=== PATIENT | female | born 1940 | race Caucasian/White ===

== ENCOUNTER 2021-04-05 07:14 | Emergency (ER) | payer MEDICARE, BC ==
[2021-04-05] MEDS ORDERED: Acetaminophen 325 MG Tab PO ONE (08:01)
--- NOTE | 2021-04-05 08:05 | EDM.PDOC ---
ED HPI GENERAL MEDICAL PROBLEM - General Chief Complaint: Lower Extremity Injury/Pain Stated Complaint: FALL RT KNEE PAIN Time Seen by Provider: 04/05/21 07:50 Source of Information: Reports: Patient History Limitations: Reports: No Limitations - History of Present Illness INITIAL COMMENTS - FREE TEXT/NARRATIVE: 80 yo female presents with R knee pain after falling on it last night about 6 pm. Took Tylenol then, nothing since. No other injuries. Has had to use a walker to get around since the injury. Onset: Sudden Onset Date: 04/04/21 Onset Time: 18:00 Duration: Hour(s):, Constant Location: Reports: Lower Extremity, Right Quality: Reports: Ache Severity: Moderate Improves with: Reports: Rest Worsens with: Reports: Movement Context: Reports: Trauma Associated Symptoms: Reports: No Other Symptoms Treatments LIGHTING SPECIALIST: Reports: Other (see below) (none) - Related Data Allergies Allergy/AdvReac Type Severity Reaction Status Date / Time Penicillins Allergy Hives Verified 04/05/21 07:45 tape Allergy Edema Uncoded 04/05/21 07:45 Home Meds: Home Meds Aspirin 1 tab PO DAILY 04/05/21 [History] Pravastatin Sodium 1 tab PO DAILY 04/05/21 [History] gemfibroziL [Gemfibrozil] 1 tab PO DAILY 04/05/21 [History] lisinopriL [Lisinopril] 1 tab PO DAILY 04/05/21 [History] metFORMIN [Glucophage] 1 tab PO DAILY 04/05/21 [History] Past Medical History Cardiovascular History: Reports: High Cholesterol Musculoskeletal History: Reports: Other (See Below) Other Musculoskeletal History: polio left leg brace Endocrine/Metabolic History: Reports: Diabetes, Type II - Past Surgical History Female Surgical History: Reports: Hysterectomy Social & Family History - Tobacco Use Tobacco Use Status *Q: Never Tobacco User Review of Systems - Review of Systems Review Of Systems: See Below Constitutional: Reports: No Symptoms Musculoskeletal: Reports: Joint Pain (R knee) Skin: Reports: No Symptoms Neurological: Reports: No Symptoms ED EXAM, GENERAL - Physical Exam Exam: See Below Exam Limited By: No Limitations General Appearance: Alert, WD/WN, No Apparent Distress Extremities: Pedal Edema (slight swelling to the R medial knee with tenderness. ). No: Normal Inspection, Normal Range of Motion, Non-Tender, No Pedal Edema Neurological: Alert, Oriented, CN II-XII Intact, Normal Cognition, No Motor/Sensory Deficits Psychiatric: Normal Affect, Normal Mood Skin Exam: Warm, Dry, Intact, Normal Color, No Rash. No: Ecchymosis Course - Vital Signs Last Recorded V/S: Last Vital Signs Temp 36.7 C 04/05/21 07:57 Pulse 63 04/05/21 07:57 Resp 16 04/05/21 07:57 BP 137/77 04/05/21 07:57 Pulse Ox 100 04/05/21 07:57 - Orders/Labs/Meds Orders: Active Orders 24 hr Category Date Time Status Knee Min 4V Rt [CR] Stat Exams 04/05/21 07:59 Ordered oxyCODONE Med 04/05/21 08:23 Once 5 mg PO ONETIME ONE Meds: Medications Discontinued Medications Generic Name Dose Route Start Last Admin Trade Name Freq PRN Reason Stop Dose Admin Acetaminophen 650 mg 04/05/21 08:01 04/05/21 08:09 Acetaminophen 325 Mg Tab PO 04/05/21 08:02 650 mg NOW ONE Administration - Radiology Interpretation Free Text/Narrative:: R knee X-ray-no fx's Departure - Departure Time of Disposition: 08:40 Disposition: Home, Self-Care 01 Condition: Good Clinical Impression: Contusion of right knee Qualifiers: Encounter type: initial encounter Qualified Code(s): S80.01XA - Contusion of right knee, initial encounter - Discharge Information *PRESCRIPTION DRUG MONITORING PROGRAM REVIEWED*: Not Applicable *COPY OF PRESCRIPTION DRUG MONITORING REPORT IN PATIENT KHUSHI: Not Applicable Instructions: Contusion, [id number] Referrals: PCP,None [Primary Care Provider] - Forms: ED Department Discharge Additional Instructions: Take acetaminophen and/or ibuprofen as needed for pain relief. Use your walker to take some weight off of the right leg. Recheck with your doctor. Sepsis Event Note (ED) - Evaluation Sepsis Screening Result: No Definite Risk - Focused Exam Vital Signs: Vital Signs Temp Pulse Resp BP Pulse Ox 04/05/21 07:57 36.7 C 63 16 137/77 100 04/05/21 07:43 36.7 C 63 16 137/77 100 - My Orders Last 24 Hours: My Active Orders 04/05/21 07:59 Knee Min 4V Rt [CR] Stat 04/05/21 08:23 oxyCODONE 5 mg PO ONETIME ONE - Assessment/Plan Last 24 Hours: My Active Orders 04/05/21 07:59 Knee Min 4V Rt [CR] Stat 04/05/21 08:23 oxyCODONE 5 mg PO ONETIME ONE
[2021-04-05] MEDS ORDERED: oxyCODONE 5 MG Tab PO ONE (08:23)
--- NOTE | 2021-04-05 09:45 | CR ---
Knee Min 4V Rt CLINICAL HISTORY: Pain, fall FINDINGS: Bones appear osteopenic. There is some mild depression of the lateral medial tibial plateau. Chronology of this is uncertain. No definite fracture line is seen There are no osseous lesions. There is some meniscal calcification. There is some mild joint space narrowing the lateral compartment. There appears to be a small joint effusion. IMPRESSION: Mild depression of the medial tibial plateau. Chronology is uncertain. Minimal impaction fracture is not excluded Small joint effusion Osteoporosis
== END 2021-04-05 09:17 | disposition home or self-care (01) ==
LOC: JP.ED 07:14
DX: S80.01XA Contusion of right knee, initial encounter (principal); E78.00 Pure hypercholesterolemia, unspecified; E11.9 Type 2 diabetes mellitus without complications; Z79.82 Long term (current) use of aspirin; Z79.899 Other long term (current) drug therapy; Z79.84 Long term (current) use of oral hypoglycemic drugs; Z88.0 Allergy status to penicillin; Z91.048 Other nonmedicinal substance allergy status; W19.XXXA Unspecified fall, initial encounter; Y92.009 Unspecified place in unspecified non-institutional (private) residence as the place of occurrence of the external cause
CPT/HCPCS: 73564; 99283; A9270